=== PATIENT | male | born 1975 | race Caucasian/White ===

== ENCOUNTER 2017-03-23 16:07 | Emergency (ER) | payer MEDICARE, OTHER ==
[2017-03-23] MEDS ORDERED: HYDROCODONE/ACETAMINOPHEN 5-325 MG TABLET PO ONE (17:04)
--- NOTE | 2017-03-23 17:05 | ER Document Report ---
ED Medical Screen (RME) - General Chief Complaint: Back Pain Stated Complaint: BACK PAIN Time Seen by Provider: 03/23/17 17:03 Notes: Patient complains of severe low back pain. He states he has a history of herniated disks. He states he went to lift a toolbox in his garage today when he felt something "pull". And then lost control of his urine. He states he feels like he could now could control his urine. No problems with bowel movements. He denies any altered sensations in the perineal region. TRAVEL OUTSIDE OF THE [place] IN LAST 30 DAYS: No - Related Data Allergies/Adverse Reactions: acetaminophen [From Vicodin] Adverse Reaction (Mild, Verified 06/03/15 09:38) GI upset hydrocodone bitartrate [From Vicodin] Adverse Reaction (Mild, Verified 06/03/15 09:38) GI upset hydromorphone HCl [From Dilaudid] Adverse Reaction (Mild, Verified 06/03/15 09: 38) nausea/vomiting Past Medical History - Past Medical History Cardiac Medical History: Reports: Hx Hypertension Denies: Hx Heart Attack Pulmonary Medical History: Denies: Hx Asthma Neurological Medical History: Reports: Hx Migraine. Denies: Hx Cerebrovascular Accident, Hx Seizures Renal/ Medical History: Denies: Hx Testicular Torsion GI Medical History: Denies: Hx Hepatitis, Hx Hiatal Hernia, Hx Ulcer Infectious Medical History: Denies: Hx Hepatitis Past Surgical History: Reports: Hx Appendectomy, Hx Nose Surgery - sinus surgery x 2, Hx Orthopedic Surgery - R shoulder. Denies: Hx Open Heart Surgery , Hx Pacemaker - Immunizations Hx Diphtheria, Pertussis, Tetanus Vaccination: Yes Physical Exam - Vital signs Vitals: Temp Pulse Resp BP Pulse Ox 98.2 F 100 17 146/93 H 96 03/23/17 16:14 03/23/17 16:14 03/23/17 16:14 03/23/17 16:14 03/23/17 16:14 Course - Vital Signs Vital signs: Temp Pulse Resp BP Pulse Ox 98.2 F 100 17 146/93 H 96 03/23/17 16:14 03/23/17 16:14 03/23/17 16:14 03/23/17 16:14 03/23/17 16:14
[2017-03-23 18:00] LABS: ABSOLUTE BASOPHILS # (AUTO) 0.1 10^3/uL (0.0-0.2); ABSOLUTE EOSINOPHILS # (AUTO) 0.1 10^3/uL (0.0-0.6); ABSOLUTE LYMPHOCYTES (AUTO) 2.8 10^3/uL (0.5-4.7); ABSOLUTE MONOCYTES (AUTO) 0.4 10^3/uL (0.1-1.4); ABSOLUTE NEUT (AUTO) 5.5 10^3/uL (1.7-8.2); BASOPHILS % (AUTO) 1.2 % (0-2); EOSINOPHILS % (AUTO) 1.4 % (0-6); HEMATOCRIT 45.6 % (37.9-51.0); HEMOGLOBIN 15.8 g/dL (13.5-17.0); LYMPHOCYTES % (AUTO) 31.5 % (13-45); MEAN CORPUSCULAR HGB CONC 34.7 g/dL (32.0-36.0); MEAN CORPUSCULAR VOLUME 78 fl (80-97); MONOCYTES % (AUTO) 4.9 % (3-13); PLATELET COUNT 353 10^3/uL (150-450); RED BLOOD COUNT 5.85 10^6/uL (4.35-5.55); RED CELL DISTRIBUTION WIDTH 14.1 % (11.5-14.0); TOTAL CELLS COUNTED % (AUTO) 100 %
[2017-03-23 18:07] LABS: APPEARANCE,URINE CLEAR; BILIRUBIN,URINE NEGATIVE (NEGATIVE); COLOR,URINE YELLOW; GLUCOSE, URINE NEGATIVE (NEGATIVE); KETONES,URINE NEGATIVE (NEGATIVE); LEUKOCYTE ESTERASE,URINE NEGATIVE (NEGATIVE); NITRITE,URINE NEGATIVE (NEGATIVE); PROTEIN,URINE NEGATIVE (NEGATIVE); URINE SPECIFIC GRAVITY 1.014; UROBILINOGEN,URINE NEGATIVE mg/dL (<2.0)
--- NOTE | 2017-03-23 18:17 | RADIOLOGY REPORT (SQ) ---
EXAM DESCRIPTION: L SPINE 2 VIEWS COMPLETED DATE/TIME: 03/23/2017 5:58 pm REASON FOR STUDY: severe back pain COMPARISON: None. NUMBER OF VIEWS: Two views. TECHNIQUE: AP and lateral radiographic images acquired of the lumbar spine. LIMITATIONS: None. FINDINGS: MINERALIZATION: Normal. SEGMENTATION: Normal. No transitional anatomy. ALIGNMENT: Normal. VERTEBRAE: Maintained height. No fracture or worrisome bone lesion. DISCS: Preserved height. Minimal anterior osteophytic lipping is identified. POSTERIOR ELEMENTS: Pedicles and facets are intact. No pars defect or posterior arch defects. HARDWARE: None in the spine. PARASPINAL SOFT TISSUES: Normal. PELVIS: Intact as visualized. No fractures or worrisome bone lesions. SI joints intact. OTHER: No other significant finding. IMPRESSION: No significant vertebral compression or disc space reduction is seen. There is minimal anterior osteophytic lipping. TECHNICAL DOCUMENTATION: JOB ID: [id number] [employer]- All Rights Reserved
[2017-03-23 18:22] LABS: ANION GAP 10 (5-19); BLOOD UREA NITROGEN 15 mg/dL (7-20); CARBON DIOXIDE 30 mmol/L (22-30); CHLORIDE 105 mmol/L (98-107); GLUCOSE 84 mg/dL (75-110); POTASSIUM 4.4 mmol/L (3.6-5.0); SODIUM 145.1 mmol/L (137-145)
[2017-03-23] MEDS ORDERED: HYDROCODONE/ACETAMINOPHEN 5-325 MG (6 TAB/ER DISP) PO PRN (20:36)
--- NOTE | 2017-03-23 20:36 | ER Document Report ---
ED Neck/Back Problem - General Chief Complaint: Back Pain Stated Complaint: BACK PAIN Time Seen by Provider: 03/23/17 17:03 Notes: Patient is a 41 year old male that comes to the ED for chief complaint of back injury/pain. He states he was lifting a heavy tool box with one arm and he twisted to put it down and he had a sharp pain in his left mid back when doing so. He states the area keeps "seizing up" on him with sharp pain. He states when he did the initial twist he accidentally urinated on himself. He denies bowel incontinence. He denies any numbness or tingling. He denies lower back pain. He has been able to urinate without any difficulty since. Patient states he has an MRI previously that showed herniated disks but he has had no back surgeries. He denies IV drug abuse, fever. He denies any daily medications. TRAVEL OUTSIDE OF THE [place] IN LAST 30 DAYS: No - Related Data Allergies/Adverse Reactions: acetaminophen [From Vicodin] Adverse Reaction (Mild, Verified 03/23/17 20:48) GI upset hydrocodone bitartrate [From Vicodin] Adverse Reaction (Mild, Verified 03/23/17 20:48) GI upset hydromorphone HCl [From Dilaudid] Adverse Reaction (Mild, Verified 03/23/17 20: 48) nausea/vomiting Past Medical History - General Information source: Patient - Social History Smoking Status: Never Smoker Drug Abuse: None Lives with: Family Family History: Reviewed & Not Pertinent - Past Medical History Cardiac Medical History: Reports: Hx Hypertension Denies: Hx Heart Attack Pulmonary Medical History: Denies: Hx Asthma Neurological Medical History: Reports: Hx Migraine. Denies: Hx Cerebrovascular Accident, Hx Seizures Renal/ Medical History: Denies: Hx Testicular Torsion GI Medical History: Denies: Hx Hepatitis, Hx Hiatal Hernia, Hx Ulcer Infectious Medical History: Denies: Hx Hepatitis Past Surgical History: Reports: Hx Appendectomy, Hx Nose Surgery - sinus surgery x 2, Hx Orthopedic Surgery - R shoulder. Denies: Hx Open Heart Surgery , Hx Pacemaker - Immunizations Hx Diphtheria, Pertussis, Tetanus Vaccination: Yes Review of Systems - Review of Systems Constitutional: No symptoms reported EENT: No symptoms reported Cardiovascular: No symptoms reported Respiratory: No symptoms reported Gastrointestinal: No symptoms reported Genitourinary: See HPI Male Genitourinary: No symptoms reported Musculoskeletal: See HPI Skin: No symptoms reported Hematologic/Lymphatic: No symptoms reported Neurological/Psychological: See HPI Physical Exam - Vital signs Vitals: Temp Pulse Resp BP Pulse Ox 98.2 F 100 17 146/93 H 96 03/23/17 16:14 03/23/17 16:14 03/23/17 16:14 03/23/17 16:14 03/23/17 16:14 Interpretation: Normal - General General appearance: Appears well, Alert In distress: None - Patient standing up, well-appearing, no signs of distress - HEENT Head: Normocephalic, Atraumatic Eyes: Normal Pupils: PERRL - Respiratory Respiratory status: No respiratory distress Chest status: Nontender Breath sounds: Normal Chest palpation: Normal - Cardiovascular Rhythm: Regular Heart sounds: Normal auscultation Murmur: No - Abdominal Inspection: Normal Distension: No distension Bowel sounds: Normal Tenderness: Nontender. No: Tender Organomegaly: No organomegaly - Back Back: Tender - Tender in the left parathoracic musculature. No midline tenderness, no saddle anesthesia, negative straight leg raise, normal distal neurovascular exam, normal upper and lower extremity strength and range of motion - Extremities General upper extremity: Normal inspection, Nontender, Normal color, Normal ROM , Normal temperature General lower extremity: Normal inspection, Nontender, Normal color, Normal ROM , Normal temperature, Normal weight bearing. No: Pola's sign - Neurological Neuro grossly intact: Yes Cognition: Normal Orientation: AAOx4 [place] Coma Scale Eye Opening: Spontaneous Michelle Coma Scale Verbal: Oriented [place] Coma Scale Motor: Obeys Commands Michelle Coma Scale Total: 15 Speech: Normal Motor strength normal: LUE, RUE, LLE, RLE Sensory: Normal - Psychological Associated symptoms: Normal affect, Normal mood - Skin Skin Temperature: Warm Skin Moisture: Dry Skin Color: Normal Course - Re-evaluation Re-evalutation: Patient has tenderness with position changes, palpable tenderness in the left mid thoracic region. Appears to be a pulled muscle and muscle spasm. He did urinate when it happened, however he has had no urinary retention, he is urinating normally, no bowel incontinence, no saddle anesthesia, no current symptoms other than pain in that particular area. Not consistent with cauda equina. No distress suggesting life-threatening etiology causing the back pain. Discussed with Dr. Quesada. Patient will be treated for his symptoms, discussed follow-up, discussed return precautions in detail with patient. Patient states understanding and agreement. - Vital Signs Vital signs: Temp Pulse Resp BP Pulse Ox 97.8 F 88 18 142/97 H 96 03/23/17 20:44 03/23/17 20:44 03/23/17 20:44 03/23/17 20:44 03/23/17 20:44 - Laboratory Result Diagrams: 03/23/17 17:43 03/23/17 17:43 Laboratory results interpreted by me: 03/23/17 03/23/17 17:43 17:43 RBC 5.85 H MCV 78 L RDW 14.1 H Sodium 145.1 H Discharge - Discharge Clinical Impression: Back pain Qualifiers: Back pain location: thoracic back pain Chronicity: acute Back pain laterality: left Qualified Code(s): M54.6 - Pain in thoracic spine Condition: Stable Disposition: HOME, SELF-CARE Additional Instructions: Your symptoms are consistent with muscle strain and spasm but no concerning problems at this time. Apply heat to the area, rest your back, take given medications from [facility], take the muscle relaxer as prescribed, avoid lifting and twisting until symptoms resolve. Follow-up with primary care. Return if you develop numbness, you cannot urinate, you cannot control your bowels, you develop a fever, or for any other concerning symptoms. Prescriptions: Methocarbamol [Robaxin 750 mg Tablet] 750 mg PO Q6 #20 tablet Naproxen 500 mg PO BID PRN #20 tablet PRN Reason: Referrals: BRIDGET HAQUE NP [Primary Care Provider] - Follow up as needed
[2017-03-23 20:48] VITALS: BP 142/97
== END 2017-03-23 20:46 | disposition home or self-care (01) ==
LOC: ER 16:07
DX: M54.6 Pain in thoracic spine (principal); X50.0XXA Overexertion from strenuous movement or load, initial encounter; R32 Unspecified urinary incontinence; I10 Essential (primary) hypertension
CPT/HCPCS: 99283; 36415; 85025; 80048; 81001; 72100; A9270 ×2

== ENCOUNTER 2017-05-27 12:59 | Emergency (ER) | payer MEDICARE, OTHER ==
[2017-05-27 13:38] LABS: HEMATOCRIT 46.4 % (37.9-51.0); HEMOGLOBIN 15.1 g/dL (13.5-17.0); MEAN CORPUSCULAR HEMOGLOBIN 25.5 pg (27.0-33.4); MEAN CORPUSCULAR HGB CONC 32.5 g/dL (32.0-36.0); MEAN CORPUSCULAR VOLUME 79 fl (80-97); PLATELET COUNT 334 10^3/uL (150-450); RED BLOOD COUNT 5.91 10^6/uL (4.35-5.55); WHITE BLOOD COUNT 20.1 10^3/uL (4.0-10.5)
[2017-05-27 14:03] LABS: ABSOLUTE LYMPHOCYTES# (MANUAL) 15.7 10^3/uL (0.5-4.7); ABSOLUTE MONOCYTES # (MANUAL) 0.2 10^3/uL (0.1-1.4); BASOPHILS % (MANUAL) 0 % (0-2); EOSINOPHILS % (MANUAL) 1 % (0-6); MONOCYTES % (MANUAL) 1 % (3-13); SEGMENTED NEUTROPHILS % (MAN) 20 % (42-78); TOTAL CELLS COUNTED 100
[2017-05-27 14:04] LABS: ANISOCYTOSIS SLIGHT; LYMPHOCYTES % (MANUAL) 73 % (13-45); OVALOCYTES 1+; POIKILOCYTOSIS 1+
[2017-05-27 14:05] LABS: PLATELET COMMENT ADEQUATE
[2017-05-27] MEDS ORDERED: DIPHENHYDRAMINE HCL 50 MG/ML VIAL IV ONE (14:25)
[2017-05-27] MEDS ORDERED: NORMAL SALINE 1000 ML 1,000 ML IV ONE (14:25)
[2017-05-27] MEDS ORDERED: METOCLOPRAMIDE HCL INJ/PF 10 MG/2 ML SDV IV ONE (14:25)
--- NOTE | 2017-05-27 14:31 | ER Document Report ---
ED General - General Chief Complaint: Possible Overdose Stated Complaint: POSSIBLE OVERDOSE Time Seen by Provider: 05/27/17 14:05 Mode of Arrival: Medic Information source: Patient, Relative, Emergency Med Personnel Notes: 41-year-old male with a history of PTSD, traumatic brain injury, anxiety presents via EMS after being found altered by his . Per the patient all he remembers is bringing his daughter to oyster picker her paycheck this morning and then seeing EMS. Per the she states the patient has been was normal this morning but just prior to calling EMS she found him on his knees, tremulous and not speaking to her. She does not believe that he has intentionally overdosed on any of his medications. He denies any knowledge of overdose, SI, HI, auditory or visual hallucinations. Both patient and deny any recent increased stressful situations. states that he has been doing well recently. also denies any other medications in the home. Patient currently complaining of feeling anxious. He denies any headache, vision changes, chest pain, shortness of breath, abdominal pain. TRAVEL OUTSIDE OF THE [place] IN LAST 30 DAYS: No - HPI Onset: Just prior to arrival Onset/Duration: Sudden Quality of pain: No pain Severity: None Associated symptoms: None Exacerbated by: Denies Relieved by: Denies Similar symptoms previously: No Recently seen / treated by doctor: No - Related Data Allergies/Adverse Reactions: acetaminophen [From Vicodin] Adverse Reaction (Mild, Verified 03/23/17 20:48) GI upset hydrocodone bitartrate [From Vicodin] Adverse Reaction (Mild, Verified 03/23/17 20:48) GI upset hydromorphone HCl [From Dilaudid] Adverse Reaction (Mild, Verified 03/23/17 20: 48) nausea/vomiting Past Medical History - General Information source: Patient, Emergency Med Personnel, [facility] Records - Social History Smoking Status: Never Smoker Frequency of alcohol use: None Drug Abuse: Prescription drugs - remote Lives with: Family Family History: Reviewed & Not Pertinent Patient has suicidal ideation: No Patient has homicidal ideation: No - Past Medical History Cardiac Medical History: Reports: Hx Hypertension Denies: Hx Heart Attack Pulmonary Medical History: Denies: Hx Asthma Neurological Medical History: Reports: Hx Migraine. Denies: Hx Cerebrovascular Accident, Hx Seizures Renal/ Medical History: Denies: Hx Peritoneal Dialysis, Hx Testicular Torsion GI Medical History: Denies: Hx Hepatitis, Hx Hiatal Hernia, Hx Ulcer Psychiatric Medical History: Reports: Hx Anxiety, Hx Post Traumatic Stress Disorder Traumatic Medical History: Reports: Hx Traumatic Brain Injury Infectious Medical History: Denies: Hx Hepatitis Past Surgical History: Reports: Hx Appendectomy, Hx Nose Surgery - sinus surgery x 2, Hx Orthopedic Surgery - R shoulder. Denies: Hx Open Heart Surgery , Hx Pacemaker - Immunizations Hx Diphtheria, Pertussis, Tetanus Vaccination: Yes Review of Systems - Review of Systems Constitutional: denies: Fever, Weakness EENT: denies: Blurred vision, Double vision Cardiovascular: Heart racing. denies: Chest pain, Palpitations, Dizziness Respiratory: denies: Short of breath Gastrointestinal: Nausea. denies: Vomiting Genitourinary: denies: Dysuria Musculoskeletal: denies: Back pain Neurological/Psychological: Anxiety. denies: Confusion, Hallucinations, Homicidal ideation, Headaches, Suicidal ideation Physical Exam - Vital signs Vitals: Resp Pulse Ox 14 93 05/27/17 14:00 05/27/17 14:00 Interpretation: Normal, Tachycardic. No: Febrile - General General appearance: Alert, Anxious, Other - Diaphoretic In distress: Mild - HEENT Head: Normocephalic, Atraumatic Eyes: Normal Conjunctiva: Normal Extraocular movements intact: Yes Pupils: PERRL Tympanic membrane: Normal Mucous membranes: Normal - Cardiovascular Rhythm: Regular, Tachycardia Heart sounds: Normal auscultation Murmur: No Pulses: Bounding: Radial, Dorsalis pedis Normal capillary refill: Yes - Abdominal Inspection: Normal Distension: No distension Bowel sounds: Normal Tenderness: Nontender Organomegaly: No organomegaly - Neurological Neuro grossly intact: Yes Cognition: Normal, Short term memory loss Orientation: AAOx4 [place] Coma Scale Eye Opening: Spontaneous [place] Coma Scale Verbal: Oriented [place] Coma Scale Motor: Obeys Commands Michelle Coma Scale Total: 15 Speech: Normal Cranial nerves: Normal Cerebellar coordination: Normal - Tremulous Motor strength normal: LUE, RUE, LLE, RLE Additional motor exam normals: Equal junior art director Sensory: Normal - Psychological Associated symptoms: Anxious, Confused, Restlessness. No: Auditory hallucinations, Combative, Decreased appetite - Skin Skin Temperature: Warm Skin Moisture: Diaphoretic Skin Color: Normal Course - Re-evaluation Re-evalutation: Laboratory 05/27/17 05/27/1705/27/18 12:42 12:42 13:53 WBC 20.1 H RBC 5.91 H Hgb 15.1 Hct 46.4 MCV 79 L MCH 25.5 L MCHC 32.5 RDW 15.0 H Plt Count 334 Total Counted 100 Seg Neutrophils % Not Reportable Seg Neuts % (Manual) 20 L Lymphocytes % Not Reportable Lymphocytes % (Manual) 73 H Atypical Lymphs % 5 Monocytes % Not Reportable Monocytes % (Manual) 1 L Eosinophils % Not Reportable Eosinophils % (Manual) 1 Basophils % Not Reportable Basophils % (Manual) 0 Absolute Neutrophils Not Reportable Abs Neuts (Manual) 4.0 Absolute Lymphocytes Not Reportable Abs Lymphs (Manual) 15.7 H Absolute Monocytes Not Reportable Abs Monocytes (Manual) 0.2 Absolute Eosinophils Not Reportable Absolute Eos (Manual) 0.2 Absolute Basophils Not Reportable Abs Basophils (Manual) 0.0 Platelet Comment ADEQUATE Poikilocytosis 1+ Anisocytosis SLIGHT Ovalocytes 1+ Sodium Cancelled 144.0 Potassium Cancelled 3.8 Chloride Cancelled 107 Carbon Dioxide Cancelled 22 Anion Gap Cancelled 15 BUN Cancelled 11 Creatinine Cancelled 1.47 H Est GFR ( Amer) Cancelled > 60 Est GFR (Non-Af Amer) Cancelled 52 L Glucose Cancelled 147 H Calcium Cancelled 9.7 Total Bilirubin Cancelled 1.0 Direct Bilirubin Cancelled 0.4 Neonat Total Bilirubin Cancelled Not Reportable Neonat Direct Bilirubin Cancelled Not Reportable Neonat Indirect Bili Cancelled Not Reportable AST Cancelled 35 ALT Cancelled 58 Alkaline Phosphatase Cancelled 94 Total Protein Cancelled 8.4 H Albumin Cancelled 4.7 Urine Color Urine Appearance Urine pH Ur Specific [place] Urine Protein Urine Glucose (UA) Urine Ketones Urine Blood Urine Nitrite Urine Bilirubin Urine Urobilinogen Ur Leukocyte Esterase Urine WBC (Auto) Urine RBC (Auto) U Hyaline Cast (Auto) Urine Mucus (Auto) Urine Ascorbic Acid Salicylates Cancelled < 1.0 L Urine Opiates Screen Urine Methadone Screen Acetaminophen Cancelled < 10 L Ur Barbiturates Screen Ur Phencyclidine Scrn Ur Amphetamines Screen U Benzodiazepines Scrn Urine Cocaine Screen U Marijuana (THC) Screen Serum Alcohol Cancelled < 10 05/27/17 05/27/17 16:20 16:30 WBC RBC Hgb Hct MCV MCH MCHC RDW Plt Count Total Counted Seg Neutrophils % Seg Neuts % (Manual) Lymphocytes % Lymphocytes % (Manual) Atypical Lymphs % Monocytes % Monocytes % (Manual) Eosinophils % Eosinophils % (Manual) Basophils % Basophils % (Manual) Absolute Neutrophils Abs Neuts (Manual) Absolute Lymphocytes Abs Lymphs (Manual) Absolute Monocytes Abs Monocytes (Manual) Absolute Eosinophils Absolute Eos (Manual) Absolute Basophils Abs Basophils (Manual) Platelet Comment Poikilocytosis Anisocytosis Ovalocytes Sodium Potassium Chloride Carbon Dioxide Anion Gap BUN Creatinine Est GFR ( Amer) Est GFR (Non-Af Amer) Glucose Calcium Total Bilirubin Direct Bilirubin Neonat Total Bilirubin Neonat Direct Bilirubin Neonat Indirect Bili AST ALT Alkaline Phosphatase Total Protein Albumin Urine Color YELLOW Urine Appearance CLEAR Urine pH 5.0 Ur Specific Dodge 1.014 Urine Protein 30 H Urine Glucose (UA) NEGATIVE Urine Ketones NEGATIVE Urine Blood NEGATIVE Urine Nitrite NEGATIVE Urine Bilirubin NEGATIVE Urine Urobilinogen NEGATIVE Ur Leukocyte Esterase NEGATIVE Urine WBC (Auto) 2 Urine RBC (Auto) 0 U Hyaline Cast (Auto) 20 Urine Mucus (Auto) OCC Urine Ascorbic Acid NEGATIVE Salicylates Urine Opiates Screen UNCONFIRMED POSITIVE Urine Methadone Screen NEGATIVE Acetaminophen Ur Barbiturates Screen NEGATIVE Ur Phencyclidine Scrn NEGATIVE Ur Amphetamines Screen NEGATIVE U Benzodiazepines Scrn NEGATIVE Urine Cocaine Screen NEGATIVE U Marijuana (THC) Screen NEGATIVE Serum Alcohol Head CT 05/27/17 14:52 IMPRESSION: NORMAL BRAIN CT WITHOUT CONTRAST. EVIDENCE OF ACUTE STROKE: NO. 05/27/17 14:33 contacted at home for further history. Phone number [phone]. Medications reviewed all bottles appear to be full. Poison control contacted 05/27/17 14:50 Psych consulted for medication recommendations. Clonidine recommended at this time. Poison control recommendations are observation for at least 6 hours. Administration of sodium bicarb with a QTC greater than 500. Did warn that Lexapro could cause seizures. 05/27/17 15:28 is not at the bedside. Patient mentions that he may have overdosed on heroin. He metastases to previous heroin use "a couple of times". He denies IV injection. He states he usually takes it by mouth. 05/27/17 17:02 Repeat EKG obtained. Shows sinus tachycardia at a rate of 104 which is improved. QTc 469 which is unchanged from previous. 05/27/17 18:10 Patient's urine tox is indeterminate for opiates. Patient is still unclear whether he took Percocet. is at the bedside and states she feels safe with the patient going home. Because he is leaving before the recommended observation time he will be discharged AGAINST MEDICAL ADVICE. 05/28/17 16:43 41-year-old male with history of PTSD, traumatic brain injury presents via EMS from home after possible overdose. Upon arrival patient is alert and oriented 4. He is tachycardic anxious and diaphoretic but states this is his anxiety. He denies SI, HI, intentional overdose. He denies any drug use. I was advised by poison control to observe the patient for 6 hours because of his medications of Lexapro, Seroquel, bupropion and propanolol. And then arrived to the hospital I entered the room and they seem to be arguing. When I asked what was wrong the patient states "she thinks I did heroin". The then stated "I did not say that". I questioned the patient regarding his use of heroin and he states that he has used in the past but does not believe he used today. I did consult psych regarding appropriate medications to use for his anxiety during his ED course. They recommended clonidine which was administered. And requesting to leave prior to recommended observation. states that she feels comfortable with the patient coming home. Patient is alert and oriented 4, has denied SI or HI, hallucinations throughout his ED course. His home medications are at the appropriate count. His urine tox did show opiates. When I discussed the findings of opiates in his urine the patient states he may have taken a Percocet at home. Patient was discharged home AGAINST MEDICAL ADVICE. - Vital Signs Vital signs: Temp Pulse Resp BP Pulse Ox 98.1 F 110 H 18 129/83 H 94 05/27/17 18:27 05/27/17 18:27 05/27/17 18:27 05/27/17 18:27 05/27/17 18:27 - Laboratory Result Diagrams: 05/27/17 12:42 05/27/17 13:53 Laboratory results interpreted by me: 05/27/17 05/27/17 05/27/17 12:42 13:53 16:20 WBC 20.1 H RBC 5.91 H MCV 79 L MCH 25.5 L RDW 15.0 H Seg Neuts % (Manual) 20 L Lymphocytes % (Manual) 73 H Monocytes % (Manual) 1 L Abs Lymphs (Manual) 15.7 H Creatinine 1.47 H Est GFR (Non-Af Amer) 52 L Glucose 147 H Total Protein 8.4 H Urine Protein 30 H Salicylates < 1.0 L Acetaminophen < 10 L Discharge - Discharge Clinical Impression: Opiate abuse, episodic Condition: Good Disposition: AGAINST MEDICAL ADVICE Instructions: Narcotic Abuse ([facility]), Post-Traumatic Stress Disorder ([facility]) Referrals: BRIDGET HAQUE NP [Primary Care Provider] - Follow up in 3-5 days
[2017-05-27 14:36] LABS: ACETAMINOPHEN < 10 ug/mL (10-30); ALANINE AMINOTRANSFERASE 58 U/L (21-72); ALBUMIN 4.7 g/dL (3.5-5.0); ALCOHOL < 10 mg/dL (NONE DETECTED); ALKALINE PHOSPHATASE 94 U/L (38-126); ANION GAP 15 (5-19); ASPARTATE AMINO TRANSFERASE 35 U/L (17-59); BILIRUBIN,DIRECT 0.4 mg/dL (0.0-0.4); BLOOD UREA NITROGEN 11 mg/dL (7-20); CALCIUM 9.7 mg/dL (8.4-10.2); CARBON DIOXIDE 22 mmol/L (22-30); CHLORIDE 107 mmol/L (98-107); GLUCOSE 147 mg/dL (75-110); POTASSIUM 3.8 mmol/L (3.6-5.0); SALICYLATE < 1.0 mg/dL (2.0-20.0); TOTAL PROTEIN 8.4 g/dL (6.3-8.2)
[2017-05-27] MEDS ORDERED: CLONIDINE HCL 0.2 MG TABLET PO ONE (14:48)
--- NOTE | 2017-05-27 15:30 | RADIOLOGY REPORT (SQ) ---
EXAM DESCRIPTION: CT HEAD WITHOUT COMPLETED DATE/TIME: 05/27/2017 3:15 pm REASON FOR STUDY: ams h/o tbi ? seizure COMPARISON: None. TECHNIQUE: Axial images acquired through the brain without intravenous contrast. Images reviewed wi th bone, brain and subdural windows. Images stored on PACS. All CT scanners at this facility use dose modulation, iterative reconstruction, and/or weight based d osing when appropriate to reduce radiation dose to as low as reasonably achievable (ALARA). [facility]: Dose Right [facility]: CareDose [facility]: Dose Right [facility]: Teradose 4D [facility]: Smart Setup RADIATION DOSE: CT Rad equipment meets quality standard of care and radiation dose reduction techniq ues were employed. CTDIvol: 53.2 mGy. DLP: 1070 mGy-cm. mGy. LIMITATIONS: None. FINDINGS: VENTRICLES: Normal size and contour. CEREBRUM: No masses. No hemorrhage. No midline shift. No evidence for acute infarction. Normal gra y/white matter differentiation. No areas of low density in the white matter. CEREBELLUM: No masses. No hemorrhage. No alteration of density. No evidence for acute infarction. EXTRAAXIAL SPACES: No fluid collections. No masses. ORBITS AND GLOBE: No intra- or extraconal masses. Normal contour of globe without masses. CALVARIUM: No fracture. PARANASAL SINUSES: No fluid or mucosal thickening. SOFT TISSUES: No mass or hematoma. OTHER: No other significant finding. IMPRESSION: NORMAL BRAIN CT WITHOUT CONTRAST. EVIDENCE OF ACUTE STROKE: NO. COMMENT: Quality ID # [id number]: Final reports with documentation of one or more dose reduction techniques (e.g., Automated exposure control, adjustment of the mA and/or kV according to patient size, use of iterative reconstruction technique) TECHNICAL DOCUMENTATION: JOB ID: [id number] [employer]- All Rights Reserved Reading location - IP/workstation name: [email or web address]
[2017-05-27] MEDS ORDERED: ONDANSETRON 4 MG TAB.RAPDIS PO ONE (16:50)
[2017-05-27 17:01] LABS: APPEARANCE,URINE CLEAR; COLOR,URINE YELLOW
[2017-05-27 17:02] LABS: BILIRUBIN,URINE NEGATIVE (NEGATIVE); GLUCOSE, URINE NEGATIVE (NEGATIVE); KETONES,URINE NEGATIVE (NEGATIVE); URINE SPECIFIC GRAVITY 1.014
[2017-05-27 17:03] LABS: NITRITE,URINE NEGATIVE (NEGATIVE); PROTEIN,URINE 30 mg/dL (NEGATIVE); UROBILINOGEN,URINE NEGATIVE mg/dL (<2.0)
[2017-05-27 17:04] LABS: LEUKOCYTE ESTERASE,URINE NEGATIVE (NEGATIVE)
[2017-05-27 17:15] LABS: URINE AMPHETAMINES SCREEN NEGATIVE; URINE BARBITURATES SCREEN NEGATIVE; URINE BENZODIAZEPINES SCREEN NEGATIVE; URINE COCAINE SCREEN NEGATIVE; URINE MARIJUANA (THC) SCREEN NEGATIVE; URINE METHADONE SCREEN NEGATIVE; URINE PHENCYCLIDINE SCREEN NEGATIVE
[2017-05-27 18:31] VITALS: BP 129/83
--- NOTE | 2017-05-27 18:40 | EKG REPORT ---
SEVERITY:- BORDERLINE ECG - SINUS TACHYCARDIA PROBABLE LEFT ATRIAL ABNORMALITY : Confirmed by: Michael Abbott MD 27-May-2017 18:40:15
--- NOTE | 2017-05-27 18:40 | EKG REPORT ---
SEVERITY:- BORDERLINE ECG - SINUS TACHYCARDIA PROBABLE LEFT ATRIAL ABNORMALITY BORDERLINE T ABNORMALITIES, INFERIOR LEADS : Confirmed by: Michael Abbott MD 27-May-2017 18:40:00
== END 2017-05-27 18:15 | disposition left against medical advice (07) ==
LOC: ER 12:59
DX: F11.10 Opioid abuse, uncomplicated (principal); F41.9 Anxiety disorder, unspecified; F43.10 Post-traumatic stress disorder, unspecified; Z87.820 Personal history of traumatic brain injury; I10 Essential (primary) hypertension
CPT/HCPCS: 93005; 99285; 96361; 96374; 96375; 36415; 80307 ×4; 85025; 80053; 81001; 70450; 93010; A9270 ×2; J1200; J2765; J7030; S0119

== ENCOUNTER 2018-05-22 13:53 | Emergency (ER) | payer MEDICARE, OTHER ==
[2018-05-22 14:23] LABS: ABSOLUTE EOSINOPHILS # (AUTO) 0.2 10^3/uL (0.0-0.6); ABSOLUTE LYMPHOCYTES (AUTO) 2.2 10^3/uL (0.5-4.7); ABSOLUTE MONOCYTES (AUTO) 0.2 10^3/uL (0.1-1.4); ABSOLUTE NEUT (AUTO) 3.6 10^3/uL (1.7-8.2); BASOPHILS % (AUTO) 0.5 % (0-2); EOSINOPHILS % (AUTO) 2.9 % (0-6); HEMATOCRIT 46.4 % (37.9-51.0); HEMOGLOBIN 15.6 g/dL (13.5-17.0); LYMPHOCYTES % (AUTO) 35.9 % (13-45); MEAN CORPUSCULAR HEMOGLOBIN 26.3 pg (27.0-33.4); MEAN CORPUSCULAR HGB CONC 33.6 g/dL (32.0-36.0); MEAN CORPUSCULAR VOLUME 79 fl (80-97); MONOCYTES % (AUTO) 3.4 % (3-13); PLATELET COUNT 295 10^3/uL (150-450); RED BLOOD COUNT 5.91 10^6/uL (4.35-5.55); RED CELL DISTRIBUTION WIDTH 13.9 % (11.5-14.0); SEGMENTED NEUTROPHILS % (AUTO) 57.3 % (42-78); TOTAL CELLS COUNTED % (AUTO) 100 %; WHITE BLOOD COUNT 6.2 10^3/uL (4.0-10.5)
[2018-05-22 14:50] LABS: ALANINE AMINOTRANSFERASE 35 U/L (21-72); ALBUMIN 5.1 g/dL (3.5-5.0); ALKALINE PHOSPHATASE 108 U/L (38-126); ANION GAP 16 (5-19); ASPARTATE AMINO TRANSFERASE 39 U/L (17-59); BILIRUBIN,DIRECT 0.4 mg/dL (0.0-0.4); BILIRUBIN,TOTAL 0.7 mg/dL (0.2-1.3); BLOOD UREA NITROGEN 21 mg/dL (7-20); CALCIUM 10.3 mg/dL (8.4-10.2); CARBON DIOXIDE 23 mmol/L (22-30); CHLORIDE 101 mmol/L (98-107); GLUCOSE 154 mg/dL (75-110); SODIUM 139.5 mmol/L (137-145); TOTAL PROTEIN 9.5 g/dL (6.3-8.2)
[2018-05-22] MEDS ORDERED: LORAZEPAM INJ 2 MG/1 ML VIAL IV ONE (15:08)
[2018-05-22] MEDS ORDERED: NORMAL SALINE 1000 ML 1,000 ML IV ONE (15:56)
--- NOTE | 2018-05-22 17:51 | ER Document Report ---
ED General - General Chief Complaint: Syncope Stated Complaint: ALTERED MENTAL STATUS Time Seen by Provider: 05/22/18 14:46 Primary Care Provider: BRIDGET HAQUE NP [Primary Care Provider] - Follow up as needed Mode of Arrival: Medic Information source: Patient Notes: Patient is a 42-year-old male with past medical history of TBI and alleged drug abuse who presents to the emergency department via EMS after he was found with altered level of consciousness at his vehicle. EMS reports that patient tried running from the police on scene. Patient was given medications by EMS to help sedate him so patient is sleepy at the time of arrival but arousable. TRAVEL OUTSIDE OF THE [place] IN LAST 30 DAYS: No - Related Data Allergies/Adverse Reactions: acetaminophen [From Vicodin] Adverse Reaction (Mild, Verified 03/23/17 20:48) GI upset hydrocodone bitartrate [From Vicodin] Adverse Reaction (Mild, Verified 03/23/17 20:48) GI upset hydromorphone HCl [From Dilaudid] Adverse Reaction (Mild, Verified 03/23/17 20:48) nausea/vomiting Past Medical History - General Information source: Patient - Social History Smoking Status: Current Some Day Smoker Frequency of alcohol use: None Drug Abuse: Prescription drugs Family History: Reviewed & Not Pertinent Patient has suicidal ideation: No Patient has homicidal ideation: No - Past Medical History Cardiac Medical History: Reports: Hx Hypertension Denies: Hx Heart Attack Pulmonary Medical History: Denies: Hx Asthma Neurological Medical History: Reports: Hx Migraine. Denies: Hx Cerebrovascular Accident, Hx Seizures Renal/ Medical History: Denies: Hx Peritoneal Dialysis, Hx Testicular Torsion GI Medical History: Denies: Hx Hepatitis, Hx Hiatal Hernia, Hx Ulcer Psychiatric Medical History: Reports: Hx Anxiety, Hx Post Traumatic Stress Disorder Traumatic Medical History: Reports: Hx Traumatic Brain Injury Infectious Medical History: Denies: Hx Hepatitis Past Surgical History: Reports: Hx Appendectomy, Hx Nose Surgery - sinus surgery x 2, Hx Orthopedic Surgery - R shoulder. Denies: Hx Open Heart Surgery, Hx Pacemaker - Immunizations Hx Diphtheria, Pertussis, Tetanus Vaccination: Yes Review of Systems - Review of Systems Constitutional: No symptoms reported EENT: No symptoms reported Cardiovascular: No symptoms reported Respiratory: No symptoms reported Gastrointestinal: No symptoms reported Genitourinary: No symptoms reported Male Genitourinary: No symptoms reported Musculoskeletal: No symptoms reported Skin: No symptoms reported Hematologic/Lymphatic: No symptoms reported Neurological/Psychological: No symptoms reported Physical Exam - Vital signs Vitals: Pulse Ox 92 05/22/18 13:58 - Notes Notes: PHYSICAL EXAMINATION: GENERAL: Well-appearing, well-nourished and in no acute distress. HEAD: Atraumatic, normocephalic. EYES: Pupils equal round and reactive to light, extraocular movements intact, sclera anicteric, conjunctiva are normal. ENT: Nares patent, oropharynx clear without exudates. Moist mucous membranes. NECK: Normal range of motion, supple without lymphadenopathy LUNGS: Breath sounds clear to auscultation bilaterally and equal. No wheezes rales or rhonchi. HEART: Regular rate and rhythm without murmurs ABDOMEN: Soft, nontender, nondistended abdomen. No guarding, no rebound. No masses appreciated. Musculoskeletal: Normal range of motion, no pitting or edema. No cyanosis. NEUROLOGICAL: Cranial nerves grossly intact. Normal speech, normal gait. Normal sensory, motor exams PSYCH: Normal mood, normal affect. SKIN: Warm, Dry, normal turgor, no rashes or lesions noted. Course - Re-evaluation Re-evalutation: Patient is alert, oriented and somewhat cooperative. Patient mildly anxious stating that he does not understand why he was brought to the emergency department. His lab work is unremarkable. His vital signs are stable. He declines to give a urine sample. He states that "you guys are just looking for drugs". Patient has no thoughts of suicide or homicide. No indication to keep patient in the emergency department any longer. Patient discharged home in the presence of his . - Vital Signs Vital signs: Temp Pulse Resp BP Pulse Ox 97.8 F 111 H 10 L 126/98 H 96 05/22/18 18:01 05/22/18 14:11 05/22/18 18:01 05/22/18 18:01 05/22/18 18:01 - Laboratory Result Diagrams: 05/22/18 14:08 05/22/18 14:08 Laboratory results interpreted by me: 05/22/18 05/22/18 14:08 14:08 RBC 5.91 H MCV 79 L MCH 26.3 L BUN 21 H Creatinine 1.69 H Est GFR ( Amer) 54 L Est GFR (Non-Af Amer) 44 L Glucose 154 H Calcium 10.3 H Total Protein 9.5 H Albumin 5.1 H Discharge - Discharge Clinical Impression: Syncopal episodes Qualifiers: Syncope type: unspecified Qualified Code(s): R55 - Syncope and collapse Condition: Stable Disposition: HOME, SELF-CARE Additional Instructions: Your blood work and EKG today were normal. You were unable to provide us with a urine sample. At this time we cannot find a cause for the syncopal episode that you experience. Please follow-up with your primary care provider. Take all medications as prescribed. Referrals: BRIDGET HAQUE NP [Primary Care Provider] - Follow up as needed
[2018-05-22 18:06] VITALS: BP 126/98
--- NOTE | 2018-05-22 21:22 | EKG REPORT ---
SEVERITY:- OTHERWISE NORMAL ECG - SINUS TACHYCARDIA : Confirmed by: Aster Massey MD 22-May-2018 21:21:43
== END 2018-05-22 18:06 | disposition home or self-care (01) ==
LOC: ER 13:53
DX: R55 Syncope and collapse (principal); R41.82 Altered mental status, unspecified; F19.10 Other psychoactive substance abuse, uncomplicated; Z87.820 Personal history of traumatic brain injury; F17.200 Nicotine dependence, unspecified, uncomplicated; I10 Essential (primary) hypertension
CPT/HCPCS: 93005; 99284; 96361; 96374; 36415; 85025; 80053; 93010; J2060; J7030

== ENCOUNTER 2018-10-17 13:20 | Emergency (ER) | payer MEDICARE, OTHER ==
--- NOTE | 2018-10-17 13:56 | ER Document Report ---
ED Substance Abuse / Acc. OD - General Chief Complaint: Passed Out Prior to Arrival Stated Complaint: ALTERED MENTAL STATUS Time Seen by Provider: 10/17/18 13:36 Primary Care Provider: BRIDGET HAQUE NP [Primary Care Provider] - Follow up as needed Mode of Arrival: Medic Information source: Patient Notes: Patient was brought in by EMS after being found unresponsive and apneic in his vehicle in traffic. Patient was given intranasal Narcan and then started to breathe normally. Patient was then given IV Narcan and became awake alert and oriented. Patient patient initially denied taking any medication although does report a history of substance abuse in which he would either take orally or snort narcotics. Patient alluded to narcotic use to EMS staff although did not definitively say what he used. Patient presently only complains of feeling anxious. Patient denies any headache, chest pain, shortness of breath, abdominal pain nausea or vomiting. Patient states that he has had episodes like this in the past and would just like to go home. TRAVEL OUTSIDE OF THE [place] IN LAST 30 DAYS: No - HPI Patient complains to provider of: Accidental overdose, Substance abuse Onset: Just prior to arrival Onset/Duration: Sudden Quality of pain: No pain Associated Symptoms: denies: Fever/chills/sweaty, Chest pain/discomfort, Hurts to breathe, Vomiting blood, Diarrhea, Headache Similar symptoms previously: Yes Recently seen / treated by doctor: No - Related Data Allergies/Adverse Reactions: acetaminophen [From Vicodin] Adverse Reaction (Mild, Verified 03/23/17 20:48) GI upset hydrocodone bitartrate [From Vicodin] Adverse Reaction (Mild, Verified 03/23/17 20:48) GI upset hydromorphone HCl [From Dilaudid] Adverse Reaction (Mild, Verified 03/23/17 20:48) nausea/vomiting Past Medical History - General Information source: Patient, Relative - Social History Smoking Status: Never Smoker Frequency of alcohol use: None Drug Abuse: Heroin, Prescription drugs Occupation: none Lives with: Family Family History: Reviewed & Not Pertinent - Past Medical History Cardiac Medical History: Reports: Hx Hypertension Denies: Hx Heart Attack Pulmonary Medical History: Denies: Hx Asthma Neurological Medical History: Reports: Hx Migraine. Denies: Hx Cerebrovascular Accident, Hx Seizures Renal/ Medical History: Denies: Hx Peritoneal Dialysis, Hx Testicular Torsion Psychiatric Medical History: Reports: Hx Anxiety, Hx Post Traumatic Stress Disorder Traumatic Medical History: Reports: Hx Traumatic Brain Injury Infectious Medical History: Denies: Hx Hepatitis Past Surgical History: Reports: Hx Appendectomy, Hx Nose Surgery - sinus surgery x 2, Hx Orthopedic Surgery - R shoulder - Immunizations Hx Diphtheria, Pertussis, Tetanus Vaccination: Yes Review of Systems - Review of Systems Constitutional: No symptoms reported. denies: Fever, Recent illness EENT: No symptoms reported Cardiovascular: No symptoms reported. denies: Chest pain Respiratory: No symptoms reported. denies: Cough, Short of breath Gastrointestinal: No symptoms reported. denies: Abdominal pain, Vomiting Genitourinary: No symptoms reported Male Genitourinary: No symptoms reported Musculoskeletal: No symptoms reported. denies: Back pain, Neck pain Skin: No symptoms reported Hematologic/Lymphatic: No symptoms reported Neurological/Psychological: Lost consciousness Physical Exam - Vital signs Vitals: Temp Pulse Resp BP Pulse Ox 97.6 F 104 H 16 134/78 H 95 10/17/18 13:27 10/17/18 13:27 10/17/18 13:27 10/17/18 13:27 10/17/18 13:27 - General General appearance: Appears well, Alert, Anxious In distress: None - HEENT Head: Normocephalic, Atraumatic Eyes: Normal Conjunctiva: Normal Nasal: Normal Mouth/Lips: Normal Mucous membranes: Normal Neck: Normal, Supple. No: Lymphadenopathy - Respiratory Respiratory status: No respiratory distress Chest status: Nontender Breath sounds: Normal. No: Rales, Rhonchi, Stridor, Wheezing Chest palpation: Normal - Cardiovascular Rhythm: Regular Heart sounds: S1 appreciated, S2 appreciated - Abdominal Inspection: Obese Distension: No distension Bowel sounds: Normal Tenderness: Nontender - Back Back: Normal, Nontender. No: CVA tenderness - Extremities General upper extremity: Normal inspection, Normal ROM General lower extremity: Normal inspection, Normal ROM - Neurological Neuro grossly intact: Yes Cognition: Normal Michelle Coma Scale Eye Opening: Spontaneous [place] Coma Scale Verbal: Oriented [place] Coma Scale Motor: Obeys Commands Michelle Coma Scale Total: 15 - Psychological Associated symptoms: Normal mood, Anxious - Skin Skin Temperature: Warm Skin Moisture: Dry Skin Color: Normal Course - Re-evaluation Re-evalutation: 10/17/18 13:50 ict customer support officer at bedside trying to encourage patient to agree to stay for additional treatment. Patient states that he feels anxious and that he has had this happen before where he has passed out while driving his car. Patient states that he does not want to stay for further evaluation. Patient does admit to using narcotics orally that aren't prescribed to him, but has no memory of using them today. Patient denies any suicidal or homicidal ideation. Patient advised that the medication that we gave could wear off sooner than the effects of the medication that he took and could cause him to pass out again, stop breathing and could cause . Patient advised that his use of narcotics could kill him. Patient states that he has Narcan at home. Offered patient consultation with mental health for evaluation for substance abuse treatment. Patient declines wanting any help with treating his opioid addiction. Consult with Dr. Vanessa regarding patient presentation, his desire to not have any testing, and his plan to leave. Recommends offering patient treatment, further evaluation for why he passed out, advising him that he could . Patient at this time has capacity and is not suicidal or homicidal. Advises having patient sign AMA. The patient has decided not to proceed with further recommended testing or treatment to determine the cause of her symptoms. The risk and alternatives to the recommendation were discussed the patient voiced understanding. The patient appears clinically to have the capacity to make this decision. The patient was instructed that they could return to the ER at any time to complete the testing or treatment. Patient is agreeable to wait until his can get here so that she can drive him home. Officer at bedside continues to try to encourage patient to stay for further evaluation. 10/17/18 14:10 Patient now is agreeable to have lab work performed. Patient states that he was told by the officer that if he was not staying here then he would be put under arrest and taken to the police station to have drug testing performed. Patient states that he does not want to be in any additional trouble and would like to have evaluation here at this time. Patient's is at bedside who states that she does not know what he did today as she tries to remove herself from him. 10/17/18 15:24 Patient does admit to snorting heroin prior to arrival. Patient has been accepted to the [facility] and the [place] has called and confirmed this with our mental health team. Patient is planning to go to the treatment center directly after discharge. - Vital Signs Vital signs: Temp Pulse Resp BP Pulse Ox 98.5 F 98 18 148/78 H 98 10/17/18 16:06 10/17/18 16:06 10/17/18 16:06 10/17/18 16:06 10/17/18 16:06 - Laboratory Result Diagrams: 10/17/18 14:10 10/17/18 14:10 Laboratory results interpreted by me: 10/17/18 10/17/18 10/17/18 14:10 14:10 15:03 RBC 5.79 H MCV 79 L MCH 26.4 L Glucose 136 H Total Protein 8.8 H Albumin 5.1 H Urine Protein 30 H Salicylates < 1.0 L Acetaminophen < 10 L Labs- Entire Visit 10/17/18 10/17/18 10/17/18 14:10 14:10 15:03 WBC 5.9 RBC 5.79 H Hgb 15.3 Hct 46.0 MCV 79 L MCH 26.4 L MCHC 33.3 RDW 13.4 Plt Count 287 Seg Neutrophils % 62.7 Lymphocytes % 29.8 Monocytes % 5.4 Eosinophils % 1.4 Basophils % 0.7 Absolute Neutrophils 3.7 Absolute Lymphocytes 1.8 Absolute Monocytes 0.3 Absolute Eosinophils 0.1 Absolute Basophils 0.0 Sodium 138.8 Potassium 4.5 Chloride 100 Carbon Dioxide 24 Anion Gap 15 BUN 19 Creatinine 1.22 Est GFR ( Amer) > 60 Est GFR (Non-Af Amer) > 60 Glucose 136 H Calcium 9.9 Total Bilirubin 1.0 Direct Bilirubin 0.3 Neonat Total Bilirubin Not Reportable Neonat Direct Bilirubin Not Reportable Neonat Indirect Bili Not Reportable AST 46 ALT 59 Alkaline Phosphatase 99 Total Protein 8.8 H Albumin 5.1 H Urine Color YELLOW Urine Appearance SLIGHTLY-CLOUDY Urine pH 5.0 Ur Specific [place] 1.024 Urine Protein 30 H Urine Glucose (UA) NEGATIVE Urine Ketones NEGATIVE Urine Blood NEGATIVE Urine Nitrite NEGATIVE Urine Bilirubin NEGATIVE Urine Urobilinogen NEGATIVE Ur Leukocyte Esterase NEGATIVE Urine WBC (Auto) 2 Urine RBC (Auto) 0 Squamous Epi Cells Auto <1 Urine Mucus (Auto) FEW Urine Ascorbic Acid NEGATIVE Salicylates < 1.0 L Urine Opiates Screen Urine Methadone Screen Acetaminophen < 10 L Ur Barbiturates Screen Ur Phencyclidine Scrn Ur Amphetamines Screen U Benzodiazepines Scrn Urine Cocaine Screen U Marijuana (THC) Screen Serum Alcohol < 10 10/17/18 15:03 WBC RBC Hgb Hct MCV MCH MCHC RDW Plt Count Seg Neutrophils % Lymphocytes % Monocytes % Eosinophils % Basophils % Absolute Neutrophils Absolute Lymphocytes Absolute Monocytes Absolute Eosinophils Absolute Basophils Sodium Potassium Chloride Carbon Dioxide Anion Gap BUN Creatinine Est GFR ( Amer) Est GFR (Non-Af Amer) Glucose Calcium Total Bilirubin Direct Bilirubin Neonat Total Bilirubin Neonat Direct Bilirubin Neonat Indirect Bili AST ALT Alkaline Phosphatase Total Protein Albumin Urine Color Urine Appearance Urine pH Ur Specific [place] Urine Protein Urine Glucose (UA) Urine Ketones Urine Blood Urine Nitrite Urine Bilirubin Urine Urobilinogen Ur Leukocyte Esterase Urine WBC (Auto) Urine RBC (Auto) Squamous Epi Cells Auto Urine Mucus (Auto) Urine Ascorbic Acid Salicylates Urine Opiates Screen NEGATIVE Urine Methadone Screen NEGATIVE Acetaminophen Ur Barbiturates Screen NEGATIVE Ur Phencyclidine Scrn NEGATIVE Ur Amphetamines Screen NEGATIVE U Benzodiazepines Scrn NEGATIVE Urine Cocaine Screen NEGATIVE U Marijuana (THC) Screen NEGATIVE Serum Alcohol - EKG Interpretation by Me EKG shows normal: Sinus rhythm Additional EKG results interpreted by me: 10/17/18 15:25 Borderline prolonged QT interval, QTC 478, no ST elevation Discharge - Discharge Clinical Impression: Substance abuse Overdose Qualifiers: Encounter type: initial encounter Injury intent: undetermined intent Qualified Code(s): T50.904A - Poisoning by unspecified drugs, medicaments and biological substances, undetermined, initial encounter Condition: Stable Disposition: HOME, SELF-CARE Instructions: Instructions for Home Care Following a Drug Overdose ([facility]) Additional Instructions: Return immediately for any new or worsening symptoms Followup with your primary care provider, call tomorrow to make a followup appointment Avoid using drugs and narcotics that are not prescribed to you. Using narcotics can stop you from breathing which could kill you. Follow-up directly with [facility], they are reserving your bed for you. Referrals: BRIDGET HAQUE NP [Primary Care Provider] - Follow up as needed
[2018-10-17 14:25] LABS: ABSOLUTE EOSINOPHILS # (AUTO) 0.1 10^3/uL (0.0-0.6); ABSOLUTE LYMPHOCYTES (AUTO) 1.8 10^3/uL (0.5-4.7); ABSOLUTE MONOCYTES (AUTO) 0.3 10^3/uL (0.1-1.4); ABSOLUTE NEUT (AUTO) 3.7 10^3/uL (1.7-8.2); BASOPHILS % (AUTO) 0.7 % (0-2); EOSINOPHILS % (AUTO) 1.4 % (0-6); HEMOGLOBIN 15.3 g/dL (13.5-17.0); LYMPHOCYTES % (AUTO) 29.8 % (13-45); MEAN CORPUSCULAR HEMOGLOBIN 26.4 pg (27.0-33.4); MEAN CORPUSCULAR HGB CONC 33.3 g/dL (32.0-36.0); MEAN CORPUSCULAR VOLUME 79 fl (80-97); MONOCYTES % (AUTO) 5.4 % (3-13); PLATELET COUNT 287 10^3/uL (150-450); RED BLOOD COUNT 5.79 10^6/uL (4.35-5.55); RED CELL DISTRIBUTION WIDTH 13.4 % (11.5-14.0); SEGMENTED NEUTROPHILS % (AUTO) 62.7 % (42-78); TOTAL CELLS COUNTED % (AUTO) 100 %; WHITE BLOOD COUNT 5.9 10^3/uL (4.0-10.5)
[2018-10-17 14:50] LABS: ALBUMIN 5.1 g/dL (3.5-5.0); ALKALINE PHOSPHATASE 99 U/L (38-126); ANION GAP 15 (5-19); ASPARTATE AMINO TRANSFERASE 46 U/L (17-59); BILIRUBIN,DIRECT 0.3 mg/dL (0.0-0.4); BLOOD UREA NITROGEN 19 mg/dL (7-20); CALCIUM 9.9 mg/dL (8.4-10.2); CARBON DIOXIDE 24 mmol/L (22-30); CHLORIDE 100 mmol/L (98-107); GLUCOSE 136 mg/dL (75-110); POTASSIUM 4.5 mmol/L (3.6-5.0); TOTAL PROTEIN 8.8 g/dL (6.3-8.2)
[2018-10-17 14:51] LABS: ACETAMINOPHEN < 10 ug/mL (10-30); ALCOHOL < 10 mg/dL (NONE DETECTED); SALICYLATE < 1.0 mg/dL (2.0-20.0)
[2018-10-17 15:37] LABS: APPEARANCE,URINE SLIGHTLY-CLOUDY; BILIRUBIN,URINE NEGATIVE (NEGATIVE); COLOR,URINE YELLOW; GLUCOSE, URINE NEGATIVE (NEGATIVE); KETONES,URINE NEGATIVE (NEGATIVE); LEUKOCYTE ESTERASE,URINE NEGATIVE (NEGATIVE); NITRITE,URINE NEGATIVE (NEGATIVE); PROTEIN,URINE 30 mg/dL (NEGATIVE); URINE SPECIFIC GRAVITY 1.024; UROBILINOGEN,URINE NEGATIVE mg/dL (<2.0)
[2018-10-17 15:50] LABS: URINE AMPHETAMINES SCREEN NEGATIVE; URINE BARBITURATES SCREEN NEGATIVE; URINE BENZODIAZEPINES SCREEN NEGATIVE; URINE COCAINE SCREEN NEGATIVE; URINE MARIJUANA (THC) SCREEN NEGATIVE; URINE METHADONE SCREEN NEGATIVE; URINE PHENCYCLIDINE SCREEN NEGATIVE
[2018-10-17 16:08] VITALS: BP 148/78
--- NOTE | 2018-10-17 19:57 | EKG REPORT ---
SEVERITY:- BORDERLINE ECG - SINUS RHYTHM BORDERLINE PROLONGED QT INTERVAL : Confirmed by: Aster Massey MD 17-Oct-2018 19:56:13
== END 2018-10-17 16:11 | disposition home or self-care (01) ==
LOC: ER 13:20
DX: T50.904A Poisoning by unspecified drugs, medicaments and biological substances, undetermined, initial encounter (principal); Y92.818 Other transport vehicle as the place of occurrence of the external cause; F11.20 Opioid dependence, uncomplicated; I10 Essential (primary) hypertension
CPT/HCPCS: 36415; 80053; 80307; 81001; 85025; 93005; 93010; 99285